=== PATIENT | female | born 1990 | race Caucasian/White ===

== ENCOUNTER 2017-09-04 18:58 | Emergency (ER) | payer MEDICAID ==
[2017-09-04 21:19] VITALS: BP 127/50
== END 2017-09-04 21:20 | disposition home or self-care (01) ==
LOC: ED 18:58
DX: J45.901 Unspecified asthma with (acute) exacerbation (principal); J06.9 Acute upper respiratory infection, unspecified
CPT/HCPCS: J7512; J7613

== ENCOUNTER 2018-03-29 17:16 | Emergency (ER) | payer MEDICAID ==
[~2018-03-29] VITALS: Ht 165.1 cm; Wt 62.6 kg
[2018-03-29 17:21] VITALS: BP 106/62; Ht 165.1 cm; Wt 62.6 kg
== END 2018-03-29 18:09 | disposition home or self-care (01) ==
LOC: ED 17:16
DX: H60.91 Unspecified otitis externa, right ear (principal); J45.909 Unspecified asthma, uncomplicated
CPT/HCPCS: J1885

== ENCOUNTER 2018-08-15 21:16 | Emergency (ER) | payer MEDICAID ==
[~2018-08-15] VITALS: Ht 162.6 cm; Wt 61.0 kg
[2018-08-15 22:36] VITALS: BP 113/70
== END 2018-08-15 22:36 | disposition home or self-care (01) ==
LOC: ED 21:16
DX: J45.901 Unspecified asthma with (acute) exacerbation (principal)
CPT/HCPCS: J7620